=== PATIENT | male | born 2000 | race African-American/Black ===

== ENCOUNTER 2021-05-21 21:54 | Emergency (ER) | payer OTHER ==
[~2021-05-21] VITALS: Ht 177.8 cm; Wt 72.7 kg
[2021-05-21 23:06] LABS: HEMATOCRIT 45.6 % (36.0-47.0); HEMOGLOBIN 15.7 g/dl (12.5-16.1); MEAN CELL VOLUME 89 fl (80.0-95.0); MEAN CORPUSCULAR HEMOGLOBIN 31 pg (26.0-32.0); MEAN CORPUSCULAR HGB CONC 34 g/dl (33.0-37.0); MEAN PLATELET VOLUME 8.8 fl (7.4-10.4); PLATELET COUNT 149 K/mm3 (130-400); RED BLOOD COUNT 5.15 M/mm3 (4.20-5.60); REDCELL DISTRIBUTION WIDTH-CV 11.4 % (11.5-14.5)
[2021-05-21 23:20] LABS: MONOSCREEN POSITIVE
[2021-05-21 23:23] LABS: ALBUMIN 3.9 gm/dL (3.5-5.0); BILIRUBIN,TOTAL 3.1 mg/dL (0.2-1.2); CALCIUM 9.5 mg/dL (8.4-10.2); CREATININE, serum 1.34 mg/dL (0.72-1.25); POTASSIUM 4.2 mmol/L (3.5-4.5)
[2021-05-21 23:36] LABS: BAND 13 % (0-10); EOSINOPHIL 2 % (0-4); LYMPHOCYTE 53 % (20.0-51.0); METAMYELOCYTE 2 % (0-0); NEUTROPHILS 18 % (42.0-75.2); PLATELET ESTIMATE NORMAL (NORMAL)
[2021-05-22 00:45] VITALS: BP 119/69; PULSE 83; TEMP 98.1
== END 2021-05-22 00:45 | disposition home or self-care (01) ==
LOC: COL.ER 21:54
PROVIDERS: Physician Assistant
DX: B27.90 Infectious mononucleosis, unspecified without complication (principal); N17.9 Acute kidney failure, unspecified; E86.0 Dehydration; E80.7 Disorder of bilirubin metabolism, unspecified; R94.5 Abnormal results of liver function studies
CPT/HCPCS: J1885; J2405; J7030